=== PATIENT | female | born 1940 | race Caucasian/White ===

== ENCOUNTER → 2021-04-04 | Outpatient (CLI) | payer MEDICARE | LOC: EXRD 15:21 → KOH-I 15:30 → EXRD 15:30 | DX: I82.403 Acute embolism and thrombosis of unspecified deep veins of lower extremity, bilateral (principal); R60.0 Localized edema | CPT/HCPCS: 93971 ==

== ENCOUNTER → 2021-04-18 | Outpatient (CLI) | payer MEDICARE, OTHER | LOC: US 15:00 | DX: M79.605 Pain in left leg (principal); M79.89 Other specified soft tissue disorders | CPT/HCPCS: 93971 ==

== ENCOUNTER → 2021-04-30 | Outpatient (CLI) | payer MEDICARE | LOC: KOH-I 16:00 | DX: S86.212A Strain of muscle(s) and tendon(s) of anterior muscle group at lower leg level, left leg, initial encounter (principal); M76.811 Anterior tibial syndrome, right leg; S80.02XA Contusion of left knee, initial encounter; T79.A0XA Compartment syndrome, unspecified, initial encounter; R22.42 Localized swelling, mass and lump, left lower limb; W19.XXXA Unspecified fall, initial encounter | CPT/HCPCS: 73718 ==